=== PATIENT | male | born 1950 | race African-American/Black ===

== ENCOUNTER 2017-07-13 08:35 | Emergency (ER) | payer MEDICARE, OTHER ==
[~2017-07-13 08:35] MED LIST: GLU500 PO; HYD25 PO; LIO10 PO; TEN50 PO; ZES20 PO
[2017-07-13 10:08] LABS: BASOPHIL % 0.3 % (0-2); PLATELET COUNT 297 x10^3mcL (130-400); RED CELL DISTRIBUTION WIDTH 12.3 % (11.5-14.5)
[2017-07-13 10:22] LABS: CALCIUM 8.9 mg/dL (8.5-10.1); POTASSIUM SERUM 3.8 mmol/L (3.5-5.1)
[2017-07-13 10:27] LABS: ALBUMIN 2.6 g/dL (3.4-5.0); BILIRUBIN TOTAL 0.5 mg/dL (0.20-1.00); TOTAL PROTEIN, SERUM 8.3 g/dL (6.4-8.2)
[2017-07-13] MEDS ORDERED: SIMVASTATIN20 M1 PO (10:50)
[2017-07-13] MEDS ORDERED: LANTUS SOLOS100 U/M1 SQ (10:50)
[2017-07-13 11:39] VITALS: BP 147/86
== END 2017-07-13 12:29 | disposition short-term general hospital (02) ==
LOC: ED 08:35
PROVIDERS: Emergency Medicine
DX: C11.3 Malignant neoplasm of anterior wall of nasopharynx (principal); E11.65 Type 2 diabetes mellitus with hyperglycemia; N28.9 Disorder of kidney and ureter, unspecified; I10 Essential (primary) hypertension; E78.5 Hyperlipidemia, unspecified; H40.9 Unspecified glaucoma; Z88.0 Allergy status to penicillin; Z79.4 Long term (current) use of insulin; Z79.84 Long term (current) use of oral hypoglycemic drugs; H54.40 Blindness, one eye, unspecified eye
CPT/HCPCS: J1815; J1885; J7030